=== PATIENT | male | born 1965 | race Two or more races ===

== ENCOUNTER 2022-11-23 20:16 | Inpatient (IN) | payer OTHER ==
[~2022-11-23] VITALS: Ht 165.1 cm; Wt 53.1 kg
--- NOTE | 2022-11-23 20:30 | NUR ---
RT NOTE LATE ENTRY Pt rec'd trached via bag mask by FD. [facility] noted settings given from FD. Pt sx'd for thick small amt of pale yellow secretions. Trach is patent and secured. Alarms are set and audible. ambu bag and emergency spare trach at bedside. Vent plugged into red outlet. Addendum: 11/23/22 at 2212 by AMERICA MONSIVAIS RT Amended: Links added.
[2022-11-23 20:57] LABS: BASOPHILS # (AUTO) 0.1 K/uL (0.0-0.2); BASOPHILS % (AUTO) 0.4 % (0.0-2.0); EOSINOPHILS % (AUTO) 0.4 % (0.0-6.0); HEMATOCRIT 30 % (39-51); HEMOGLOBIN 9.9 g/dL (13.5-17.5); LYMPHOCYTES # (AUTO) 2.1 K/uL (0.8-4.8); LYMPHOCYTES % (AUTO) 11.2 % (20.0-44.0); MEAN CORPUSCULAR HGB CONC 33 g/dl (31.0-36.0); MEAN CORPUSCULAR VOLUME 94 fL (80-96); MONOCYTES # (AUTO) 1.3 K/uL (0.1-1.30); MONOCYTES % (AUTO) 6.7 % (2.0-12.0); NEUTROPHILS # (AUTO) 15.6 K/uL (1.8-8.9); NEUTROPHILS % (AUTO) 81.3 % (43.0-81.0); PLATELET COUNT (AUTO) 635 K/uL (150-450); RED BLOOD CELL COUNT(AUTO) 3.23 MIL/uL (4.5-6.0); WHITE BLOOD COUNT (AUTO) 19.2 K/uL (4.3-11.0)
[2022-11-23] MEDS ORDERED: VANCOMYCIN 1 GM VIAL ONE (20:58)
[2022-11-23] MEDS ORDERED: VANCOMYCIN 1 GM in IV D5W 250 ML IV ONE (21:00)
[2022-11-23] MEDS ORDERED: CEFEPIME 1 GM in IV D5W 50 ML IV ONE (21:00)
[2022-11-23 21:03] LABS: CALCIUM, SERUM 9.2 mg/dL (8.5-10.1); CARBON DIOXIDE 23 mmol/L (21-32); CHLORIDE 101 mmol/L (98-107); CREATININE 0.6 mg/dL (0.6-1.3); GLUCOSE 165 mg/dL (74-106); POTASSIUM 4.3 mmol/L (3.5-5.1); SODIUM SERUM 135 mmol/L (136-145); UREA NITROGEN, BLOOD 14 mg/dL (7-18)
[2022-11-23] MEDS ORDERED: CEFEPIME 1 GM VIAL ONE ×2 (21:03→21:07)
[2022-11-23 21:05] LABS: BILIRUBIN,URINE NEGATIVE (NEGATIVE); COLOR,URINE YELLOW (YELLOW); LEUKOCYTE ESTERASE ,URINE NEGATIVE (NEGATIVE); NITRITE, URINE NEGATIVE (NEGATIVE); PH,URINE 5.5 (5.0-8.0); PROTEIN,URINE 1+ mg/dl (NEGATIVE); UGLUCOSE 3+ mg/dL (NEGATIVE)
[2022-11-23 21:09] LABS: ALANINE AMINOTRANSFERASE 21 U/L (12-78); ALBUMIN 1.7 g/dL (3.4-5.0); ALKALINE PHOSPHATASE 408 U/L (46-116); ASPARTATE AMINOTRANSFERASE 42 U/L (15-37); BILIRUBIN,DIRECT 0.4 mg/dL (0.0-0.2); BILIRUBIN,TOTAL 0.7 mg/dL (0.2-1.0); TOTAL PROTEIN, SERUM 8.2 g/dL (6.4-8.2)
[2022-11-23 21:12] LABS: BACTERIA,URINE Moderate /HPF (None Seen); SQUAMOUS EPITHELIAL CELL,UR Moderate /HPF (None Seen)
[2022-11-23 21:13] LABS: FINE GRANULAR CASTS,URINE Few /LPF (None Seen); WBC,URINE 0-2 /HPF (0-3)
--- NOTE | 2022-11-23 21:26 | NUR ---
PT IN BED 5, BREATHING IS EVEN AND UNLABORED, VENT TRACH, RR 22, O2 SAT 93% ON 60%FiO2. CARDIOVASCULAR WNL. FEVER OF 100.5. G TUBE IN PLACE, CLAMPED AND DRESSED. NUERO: PT TRACKS WITH EYE BUT IS NON RESPONSIVE TO VERBAL STIMULI. STEVENS CATHERTER IN PLACE DRAININ YELLOW URINE. BED IS LOCKED IN LOWEST POSITION, FOLWERS POSITION SIDE RAILS UP.
[2022-11-23] MEDS ORDERED: IV NS 0.9% 2,000 ML IV ONE (21:30)
--- NOTE | 2022-11-23 21:38 | NUR ---
BLOOD, CULTURES, URINE, COVID TAKEN AND SENT TO LAB
--- NOTE | 2022-11-23 21:41 | NUR ---
GAVE VERBAL CLINICALS TO [facility] AUTH
--- NOTE | 2022-11-23 22:26 | NUR ---
HAND OFF REPORT GIVEN TO JARROD VEGA
[2022-11-23] MEDS ORDERED: Z GUARD REMEDY 4 OZ OINT TP PRN (23:00)
[2022-11-23] MEDS ORDERED: MAGNESIUM HYDROXIDE 30 ML UDC PO PRN (23:00)
[2022-11-23] MEDS ORDERED: ONDANSETRON HCL/PF 4 MG/2 ML VIAL IVP PRN (23:00)
[2022-11-23] MEDS ORDERED: ZOLPIDEM TARTRATE 5 MG TABLET PO PRN (23:00)
[2022-11-23] MEDS ORDERED: MAG HYDROX/AL HYDROX/SIMETH 30 ML UDC PO PRN (23:00)
[2022-11-23] MEDS ORDERED: DEXTROSE 50%-WATER 50 ML DISP.SYRIN IV PRN (23:30)
[2022-11-23] MEDS: IPRATROPIUM NEB FS 0.5 MG/2.5 ML AMPUL.NEB NEB SCH (23:42)
[2022-11-24] VITALS (7 sets, daily range): BP systolic 89–100; BP diastolic 57–75
--- NOTE | 2022-11-24 00:55 | NUR ---
PT TO 108 VIA FUNMILAYO WITH RN AND RT.
--- NOTE | 2022-11-24 01:15 | NUR ---
TRANSFERRED TO 108 UNDER ACLS
[2022-11-24] MEDS: IV NS 0.9% 1,000 ML IV PRN ×2 (01:34→18:49)
[2022-11-24] MEDS: BLOOD SUGAR DIAGNOSTIC 1 EACH STRIP IN SCH ×5 (01:34→23:58)
--- NOTE | 2022-11-24 01:52 | NUR ---
RN NOTE INFORMED SKY FLOOR CLERK THAT ACCU CHECK Q6HR. BLOOD SUGAR 132. PER ISS 2 UNITS COVERAGE. NO GTUBE FEEDING ORDERED AT THIS TIME. NO INFORMATION FROM SNF ABOUT WHICH FEEDING PATIENT RECIEVES. RECIEVED ORDER OK TO HOLD COVERAGE.
[2022-11-24] MEDS: INSULIN REGULAR, HUMAN 100 UNIT/ML 3 ML VIAL SQ PRN ×4 (01:54→17:59)
[2022-11-24] MEDS: ALBUTEROL FS 2.5 MG/3 ML VIAL.NEB NEB SCH ×4 (05:18→19:36)
[2022-11-24] MEDS: IPRATROPIUM NEB FS 0.5 MG/2.5 ML AMPUL.NEB NEB SCH ×6 (05:18→23:13)
[2022-11-24 06:21] LABS: BASOPHILS # (AUTO) 0.1 K/uL (0.0-0.2); BASOPHILS % (AUTO) 0.4 % (0.0-2.0); EOSINOPHILS % (AUTO) 0.5 % (0.0-6.0); HEMATOCRIT 25 % (39-51); HEMOGLOBIN 8.4 g/dL (13.5-17.5); LYMPHOCYTES # (AUTO) 4.7 K/uL (0.8-4.8); LYMPHOCYTES % (AUTO) 20.2 % (20.0-44.0); MEAN CORPUSCULAR HGB CONC 33 g/dl (31.0-36.0); MEAN CORPUSCULAR VOLUME 95 fL (80-96); MONOCYTES # (AUTO) 1.4 K/uL (0.1-1.30); MONOCYTES % (AUTO) 5.9 % (2.0-12.0); NEUTROPHILS # (AUTO) 16.9 K/uL (1.8-8.9); PLATELET COUNT (AUTO) 563 K/uL (150-450); RED BLOOD CELL COUNT(AUTO) 2.69 MIL/uL (4.5-6.0); WHITE BLOOD COUNT (AUTO) 23.2 K/uL (4.3-11.0)
--- NOTE | 2022-11-24 06:53 | NUR ---
RN CLOSING NOTE ALERT, NONVERBAL, TRACKS WITH EYES. ON MECH VENT. SINUS RHYTHM ON THE MONITOR. PENDING WOUND CONSULT FOR SACRAL DTI. GT PRESENT, CLAMPED. IVF RUNNING. PLAN FOR ID AND PULM CONSULT, DIETARY CONS.
[2022-11-24 07:29] LABS: CALCIUM, SERUM 8.5 mg/dL (8.5-10.1); CREATININE 0.5 mg/dL (0.6-1.3); MAGNESIUM 2.1 mg/dL (1.8-2.4); PHOSPHORUS 3.6 mg/dL (2.5-4.9); POTASSIUM 3.8 mmol/L (3.5-5.1)
--- NOTE | 2022-11-24 07:56 | NUR ---
WOUND CARE CONSULT: PT PRESENTS WITH UNSTAGEABLE SACRAL PRESSURE ULCER WITH SURROUNDING DEEP TISSUE INJURY, PRESENT ON ADMISSION. RECOMMENDATIONS MADE FOR SKIN PROTECTION AND DISCUSSED WITH NURSING STAFF. FIRST STEP LOW AIRLOSS MATTRESS IS ON ORDER. DR WADSWORTH CALLED FOR SURGICAL CONSULT. Kyle Barron IN AGREEMENT WITH PLAN OF CARE. Addendum: 11/24/22 at 0757 by SISSY RAMOS WNDNU Amended: Links added.
--- NOTE | 2022-11-24 08:04 | NUR ---
RASHARD RN NOTE PATIENT IN BED , WITH TRACH TO VENT SETTING ORDERED, NONVERBAL, ABLE TO TRACH BOTH EYES ,KEEP HOB ELEVATED AT ALL TIME, ON TELE MONITOR SR HR 77 , WITH STEVENS CATH TO GRAVITY WITH YELLOW COLOR URINE, SEEN BY WOUND CARE NURSE FOR SACRAL WOUND , WITH G TUBE CLAMPED AT THIS TIME, RT AC AND LT HL HL INTACT AND FLUSHED WELL ON IVF ORDERED, BEDBED IN LOWEST AND LOCKED POSITION, WILL CONT TO MONITOR CALL LIGHT WITHIN REACH,SAFETY MEASURE IMPLEMENTED
[2022-11-24] MEDS: PANTOPRAZOLE 40 MG VIAL IV SCH (08:37)
[2022-11-24] MEDS: HEPARIN SODIUM, PORCINE 5000 UNITS/1 ML VIAL SQ SCH ×2 (08:38→20:06)
[2022-11-24] MEDS: CEFEPIME 2 GM in IV D5W 100 ML IV SCH ×2 (09:03→20:06)
[2022-11-24] MEDS: PROSOURCE / PROSTAT (PYXIS) 30 ML UDC GT SCH ×2 (09:12→16:01)
[2022-11-24] MEDS: VANCOMYCIN 1 GM in IV D5W 250ml IV SCH ×2 (10:04→16:01)
[2022-11-24] MEDS ORDERED: ZINC50TA65 GT (10:50)
[2022-11-24] MEDS ORDERED: ACET-868 GT (10:50)
[2022-11-24] MEDS ORDERED: CEFT2FRO2 IV (10:50)
[2022-11-24] MEDS ORDERED: ACET-2605 GT (10:50)
[2022-11-24] MEDS ORDERED: CEFE2VIA3 IV (10:50)
[2022-11-24] MEDS ORDERED: MIDO10TA GT (10:50)
[2022-11-24] MEDS ORDERED: CHLO473M3 MM (10:50)
[2022-11-24] MEDS ORDERED: SENN-261 GT (10:50)
[2022-11-24] MEDS ORDERED: CRAN425C6 GT (10:50)
[2022-11-24] MEDS ORDERED: ASPI-1169 GT (10:50)
[2022-11-24] MEDS ORDERED: ASCO-352 GT (10:50)
[2022-11-24] MEDS ORDERED: IPRA3AMP23 IH (10:50)
[2022-11-24] MEDS ORDERED: INSU100V39 SQ (10:50)
[2022-11-24] MEDS ORDERED: MULT-447 GT (10:50)
[2022-11-24] MEDS ORDERED: POLY17PO4 GT (10:50)
[2022-11-24] MEDS ORDERED: CRAN3875 GT (10:50)
[2022-11-24] MEDS ORDERED: VANC1.2526 IV (10:50)
[2022-11-24] MEDS ORDERED: MAGN400O6 GT (10:50)
[2022-11-24] MEDS ORDERED: ONDA4TAB5 GT (10:50)
[2022-11-24] MEDS ORDERED: NALO0.4V2 IV (10:50)
[2022-11-24] MEDS ORDERED: AMIN30LI2 GT (10:50)
[2022-11-24] MEDS ORDERED: DOCU50LI GT (10:50)
[2022-11-24] MEDS ORDERED: NUT.237L30 GT (10:50)
[2022-11-24] MEDS ORDERED: ACID1TAB12 GT (10:50)
--- NOTE | 2022-11-24 11:43 | NUR ---
DOOR TO DOOR SALESMAN NOTE 2DECHO F DOING NOW
[2022-11-24] MEDS ORDERED: GLUCERNA 1.2 1,000 ML BOTTLE NG PRN (12:00)
--- NOTE | 2022-11-24 12:21 | NUR ---
SHANNAN VEGA NOTE MARQUITA DONE NEGATIVE PER TECH FOR DVR ALSO STARTED G TUBE FEEDING ORDERED Addendum: 11/24/22 at 1222 by FERNANDO WILKERSON RN NEGATIVE FOR DVT
[2022-11-24 12:51] LABS: ABG OXYGEN SATURATION 96.3 % (92.0-98.5); ABG PCO2 28.9 mmHg (35.0-45.0); ABG PH 7.438 (7.350-7.450); ABG PO2 88.6 mmHg (75.0-100.0); AaDO2 163.4 mmHg; COHb 0.1 % (0.5-1.5); MetHb 0.3 % (0.0-1.5); O2Hb 95.9 % (94.0-97.0); PEEP,BG 5 cm H2O; SITE, ABG Right Brachial; VENT MODE, BG AC 20 500 40% +5; VT, ABG 500 mL
--- NOTE | 2022-11-24 15:43 | NUR ---
SMALL BATTERY PLATE ASSEMBLER NOTE RT AT BEDSIDE .BREATHING TX DONE TRACH AND N MOUTH CARE DONE ,WILL CONT TO MONITOR
--- NOTE | 2022-11-24 18:41 | NUR ---
WINDOW TINTER NOTE PATINT IN BED ALERT AWAKE, WITH TRACING BOTH EYES, NONVERBAL WITH TRACH TO VENT SETTING ORDERED, ON TELE MONITORS 102.AT THIS TIME, WITH STEVENS CATH TO GRAVITY WITH YELLOW ATA COLOR, RT FA AND LT FA HL INTACT AND FLUSHED WELL , WITH G TUBE FEEDING ORDERED KEEP HOB ELEVATED AT ALL TIME, BED IN LOWEST AND LOCKED POSITION
--- NOTE | 2022-11-24 19:00 | NUR ---
FINANCIAL ACCOUNTING ANALYST open note Recieved pt resting in bed, awake, easily arausable, 02 via vent to trach noted, trach at midline, NAD noted at this time, cano patent and draining clear yellow urine, LFA and RFA IV dressing intact, flushing well, GT patent, placement noted, 0 residual noted, feeding infusing via GT tolerating well, safety precautions in place, HOB up, will continue to monitor
--- NOTE | 2022-11-24 20:00 | NUR ---
AUTOMOBILE DESIGNER note enteral feeding rate increased to 40cc/ hr, pt tolerating well, 0 residual noted
--- NOTE | 2022-11-24 21:00 | NUR ---
PROGRAM SCHEDULER NOTE spoke to daughter for consent of sacral debredment per daughter its ok to procede
[2022-11-24] MEDS: DAKINS QUARTER STRENGTH (0.125%) 480 ML BOTTLE TOP SCH (23:28)
[2022-11-25] VITALS: BP 96/59
[2022-11-25] MEDS: INSULIN REGULAR, HUMAN 100 UNIT/ML 3 ML VIAL SQ PRN ×5 (00:01→23:59)
--- NOTE | 2022-11-25 00:04 | NUR ---
EDGE GLUER note increased enteral feeding to 50cc/ hr
[2022-11-25] MEDS: VANCOMYCIN 1 GM in IV D5W 250ml IV SCH ×2 (01:00→08:37)
[2022-11-25] MEDS: ALBUTEROL FS 2.5 MG/3 ML VIAL.NEB NEB SCH ×4 (01:35→19:19)
[2022-11-25] MEDS: IPRATROPIUM NEB FS 0.5 MG/2.5 ML AMPUL.NEB NEB SCH ×5 (03:31→19:19)
[2022-11-25 04:00] VITALS: BP 91/65
[2022-11-25] MEDS: BLOOD SUGAR DIAGNOSTIC 1 EACH STRIP IN SCH ×3 (05:16→18:23)
--- NOTE | 2022-11-25 06:32 | NUR ---
PERSONAL SERVICE WORKERS exit note Pt resting in bed, hob elevated, afebrile, vent settings noted, trach intact at midline, enteral feeding infusing via GT, tolerating well, LFA and RFA iv patent, cano cath patent, draining clear yellow urine, pt is up for sacral wound debredment today, consent signed, in chart, NAD noted this shift.
--- NOTE | 2022-11-25 07:15 | NUR ---
RASHARD RN OPENING NOTES: Pt resting in bed, hob elevated, afebrile, vent settings as prescribed, trach intact , on GTf glucerna 1.2 running at 50 ml/hr at this time well tolerated, LFA and RFA iv patent iv ns running at 75 ml/hr, cano cath patent, draining clear yellow urine, pt is up for sacral wound debridement today, consent signed, in chart,bed in low and locked position, side rails up, will monitor.
[2022-11-25] MEDS ORDERED: SILVER NITRATE APPLICATOR 1 EA BOX TP SCH (07:30)
[2022-11-25] MEDS ORDERED: LIDOCAINE 1% INJ 50 ML MDV IJ ONE (07:30)
[2022-11-25 08:00] VITALS: BP 104/64
[2022-11-25] MEDS: CEFEPIME 2 GM in IV D5W 100 ML IV SCH ×2 (08:07→20:04)
[2022-11-25 08:14] LABS: BASOPHILS # (AUTO) 0.1 K/uL (0.0-0.2); BASOPHILS % (AUTO) 0.4 % (0.0-2.0); EOSINOPHILS % (AUTO) 0.9 % (0.0-6.0); HEMATOCRIT 24 % (39-51); HEMOGLOBIN 8.2 g/dL (13.5-17.5); LYMPHOCYTES # (AUTO) 2.7 K/uL (0.8-4.8); LYMPHOCYTES % (AUTO) 17.6 % (20.0-44.0); MEAN CORPUSCULAR HGB CONC 34 g/dl (31.0-36.0); MEAN CORPUSCULAR VOLUME 92 fL (80-96); MONOCYTES # (AUTO) 1.5 K/uL (0.1-1.30); MONOCYTES % (AUTO) 9.9 % (2.0-12.0); NEUTROPHILS # (AUTO) 10.8 K/uL (1.8-8.9); NEUTROPHILS % (AUTO) 71.2 % (43.0-81.0); PLATELET COUNT (AUTO) 501 K/uL (150-450); RED BLOOD CELL COUNT(AUTO) 2.59 MIL/uL (4.5-6.0); WHITE BLOOD COUNT (AUTO) 15.2 K/uL (4.3-11.0)
[2022-11-25 08:22] LABS: CALCIUM, SERUM 8.1 mg/dL (8.5-10.1); CREATININE 0.4 mg/dL (0.6-1.3); MAGNESIUM 1.8 mg/dL (1.8-2.4); PHOSPHORUS 2.4 mg/dL (2.5-4.9); POTASSIUM 3.1 mmol/L (3.5-5.1)
[2022-11-25] MEDS: PANTOPRAZOLE 40 MG VIAL IV SCH (08:37)
[2022-11-25] MEDS: PROSOURCE / PROSTAT (PYXIS) 30 ML UDC GT SCH ×2 (08:37→16:02)
[2022-11-25] MEDS: DAKINS QUARTER STRENGTH (0.125%) 480 ML BOTTLE TOP SCH (08:38)
[2022-11-25] MEDS: HEPARIN SODIUM, PORCINE 5000 UNITS/1 ML VIAL SQ SCH ×2 (09:00→20:37)
--- NOTE | 2022-11-25 09:09 | NUR ---
RN NOTES: SPOKE TO TONO BAPTISTE SHE WILL DO DEBRIDEMENT TODAY, MADE AWARE I WILL HOLD HEPARIN, DR IRIS RAI MADE AWARE I AM HOLDING HEPARIN FOR DEBRIDEMENT
[2022-11-25] MEDS ORDERED: POTASSIUM CHLORIDE 20 MEQ POWDER PACKET NG SCH ×2 (10:30→15:30)
--- NOTE | 2022-11-25 11:30 | NUR ---
SILVIA NOTES: SEEN BY TONO BAPTISTE ADMINISTERED LIDOCAINE PRIOR TO DEBRIDEMENT, STARTED DEBRIDEMENT AND USED SILVER DANIA Addendum: 11/25/22 at 1131 by ZENAIDA SANTOS RN USED SILVER NITRATE DURING DEBRIDEMENT WILL MONITOR FOR BLEEDING
[2022-11-25] MEDS: IV NS 0.9% 1,000 ML IV PRN (11:35)
[2022-11-25 12:00] VITALS: BP 99/72
[2022-11-25] MEDS ORDERED: NEUTRA PHOS 1 POWD.PACKET NG ONE (15:30)
[2022-11-25 16:00] VITALS: BP 110/78
[2022-11-25] MEDS: VANCOMYCIN 0.75 GM in IV D5W 250 ML IV SCH (17:09)
--- NOTE | 2022-11-25 18:43 | NUR ---
EMERGENCY DEPARTMENT NURSE CLOSING NOTES: PT IN BED WITH TRACH SHILEY #7 TO MECHANICAL VENT SETTING PRESCRIBED TOLERATED WELL, NO SOB NOTED, NOT IN ANY DISTRESS,ON SINUS RHYTHM ON TELE MONITOR,, ON GT RUNNING GLUCERNA 1.2 AT 6UAL 10 ML, NO N/V/D/S NOTED.NORMAL SALINE RUNNING AT 75 ML/HR VIA, LEFT FOREARM SALINE LOCK, RFA SALINE LOCK PATENT AND FLUSHING WELL, STEVENS CATHETER DRAINING YELLOW CLEAR URINE .WOUND DEBRIDEMENT DONE EARLY, DRESSING INTACT, NO BLEEDING NOTED,BED IN LOW AND LOCKED POSITION, CALL LIGHT WITHIN REACH, SIDE RAILS UP, WILL ENDORSE TO ACID BLOWER RN FOR DEMARIO
[2022-11-25 20:00] VITALS: BP 100/66
--- NOTE | 2022-11-25 22:54 | NUR ---
FLEXO OPERATOR CLOSING NOTES: RECEIVED PTS IN BED WITH EYE OPEN , S/P DEBRIDEMENT SACRAL DRESSING INTACT NO BLEEDING NOTED., WITH TRACH SHILEY #7 TO MECHANICAL VENT SETTING ORDERED. TOLERATED WELL, NO SOB NOT IN ANY DISTRESS,ON SINUS RHYTHM ON TELE MONITOR,, ON GT RUNNING GLUCERNA 1.2 AT 6OCC/HR , NO N/V/D/S NOTED.NORMAL SALINE RUNNING AT 75 ML/HR VIA, LEFT FOREARM SALINE LOCK, RFA SALINE LOCK PATENT AND FLUSHING WELL, STEVENS CATHETER DRAINING YELLOW CLEAR URINE .WOUND ,BED IN LOW AND LOCKED POSITION, CALL LIGHT WITHIN REACH, SIDE RAILS UP, WILL CONTINUE TO MONITOR PTS.V/S STABLE AFEBRILE. Addendum: 11/25/22 at 2312 by GERARD PENG RN This opening notes at 2000hrs not closing notes .
[2022-11-25] MEDS: ACETAMINOPHEN 325 MG TABLET PO PRN (23:38)
[2022-11-26] VITALS: BP 99/57
[2022-11-26] MEDS: IPRATROPIUM NEB FS 0.5 MG/2.5 ML AMPUL.NEB NEB SCH ×7 (00:01→23:07)
[2022-11-26] MEDS: VANCOMYCIN 0.75 GM in IV D5W 250 ML IV SCH ×3 (00:06→16:01)
[2022-11-26] MEDS: BLOOD SUGAR DIAGNOSTIC 1 EACH STRIP IN SCH ×4 (00:06→17:52)
[2022-11-26] MEDS: IV NS 0.9% 1,000 ML IV PRN ×2 (00:09→23:32)
--- NOTE | 2022-11-26 00:14 | NUR ---
telesales supervisor notes Blood sugar for 12mn is 163mg/dl 3units of regular insulin given per sliding scale.pts on gt feeding. pts noted temp 100 tylenol given via gt as ordered cooling measures applied due meds given as order,will continue to monitor.
[2022-11-26] MEDS: ALBUTEROL FS 2.5 MG/3 ML VIAL.NEB NEB SCH ×4 (00:45→20:09)
[2022-11-26 04:00] VITALS: BP 99/69
[2022-11-26] MEDS: INSULIN REGULAR, HUMAN 100 UNIT/ML 3 ML VIAL SQ PRN ×3 (05:23→18:04)
--- NOTE | 2022-11-26 05:30 | NUR ---
SLOPE TENDER NOTES Blood sugar for 12mn is 163mg/dl 3units of regular insulin given per sliding scale.pts on gt feeding. Addendum: 11/26/22 at 0531 by GERARD PENG RN BLOOD SUGAR AT 6AM IS 173 MG/DL NOT 163
--- NOTE | 2022-11-26 06:25 | NUR ---
PLANT PHYSIOLOGIST CLOSING NOTES: PTS REMAIN IN BED ,ON MECHANICAL VENT SETTING ORDERED. TOLERATED WELL, NO SOB NOT IN ANY DISTRESS,ON SINUS RHYTHM ON TELE MONITOR,SATING 100%, ON GT RUNNING GLUCERNA 1.2 AT 6OCC/HR , NO N/V/D/S NOTED.NORMAL SALINE RUNNING AT 75 ML/HR VIA, LEFT FOREARM SALINE LOCK, RFA SALINE LOCK PATENT AND FLUSHING WELL, STEVENS CATHETER DRAINING YELLOW CLEAR URINE .WOUND ,BED IN LOW AND LOCKED POSITION, CALL LIGHT WITHIN REACH, SIDE RAILS UP, WILL INDORSE TO RN DAY SHIFT CONTINUITY OF CARE
[2022-11-26 06:57] LABS: CALCIUM, SERUM 8.5 mg/dL (8.5-10.1); CREATININE 0.5 mg/dL (0.6-1.3); MAGNESIUM 2.1 mg/dL (1.8-2.4); PHOSPHORUS 3.8 mg/dL (2.5-4.9); POTASSIUM 3.4 mmol/L (3.5-5.1)
--- NOTE | 2022-11-26 07:30 | NUR ---
ROOF TRUSS BUILDER AM NOTES: PT IN BED AWAKE, OPENS EYES, NON VERBAL, WITH TRACH SHILEY # 6 COVIDEN TRACH TO MECHANICAL VENT, SETTING - AC 20 TV 500, FIO2 40%, PEEP 5, O2 SAT 100%; BREATHING EVEN AND UNLABORED. NO SOB, NO DISTRESS TOLERATING WELL. SR WITH HR OF 84 ON MONITOR. NO SIGNS OF PAIN. IV ACCESS RFA G18 AND LFA G18 WITH NS AT 75 ML/HR, BOTH SITES CLEAR. GT ONGOING GLUCERNA 1.2 AT 60 ML, CHECKED FOR PLACEMENT, O RESIDUAL.STEVENS CATHETER DRAINING YELLOW CLEAR URINE. SACRAL WOUND DEBRIDEMENT DONE 11/25/22. DRESSING INTACT, NO BLEEDING NOTED,BED IN LOW AND LOCKED POSITION, CALL LIGHT WITHIN REACH, SIDE RAILS UP, WILL PERFORM PRESCRIBED WOUND TREATMENT IN A FEW. WILL TURN AND REPOSITION Q 2 HOURS. HOB UP 30 DEG AT ALL TIMES. SAFETY MEASURES IN PLACE. BED LOW LOCK. CALL LIGHT WITHIN REACH. WILL CONTINUE TO MONITOR.
[2022-11-26 07:52] LABS: BASOPHILS # (AUTO) 0.1 K/uL (0.0-0.2); BASOPHILS % (AUTO) 0.6 % (0.0-2.0); EOSINOPHILS % (AUTO) 1.5 % (0.0-6.0); HEMATOCRIT 24 % (39-51); LYMPHOCYTES # (AUTO) 2.6 K/uL (0.8-4.8); LYMPHOCYTES % (AUTO) 19.5 % (20.0-44.0); MEAN CORPUSCULAR HGB CONC 33 g/dl (31.0-36.0); MEAN CORPUSCULAR VOLUME 94 fL (80-96); MONOCYTES # (AUTO) 1.2 K/uL (0.1-1.30); NEUTROPHILS # (AUTO) 9.4 K/uL (1.8-8.9); NEUTROPHILS % (AUTO) 69.4 % (43.0-81.0); PLATELET COUNT (AUTO) 507 K/uL (150-450); RED BLOOD CELL COUNT(AUTO) 2.59 MIL/uL (4.5-6.0); WHITE BLOOD COUNT (AUTO) 13.5 K/uL (4.3-11.0)
[2022-11-26 08:00] VITALS: BP 103/67
[2022-11-26] MEDS: CEFEPIME 2 GM in IV D5W 100 ML IV SCH ×2 (09:08→21:04)
[2022-11-26] MEDS: PANTOPRAZOLE 40 MG VIAL IV SCH (09:09)
[2022-11-26] MEDS: PROSOURCE / PROSTAT (PYXIS) 30 ML UDC GT SCH ×2 (09:16→16:02)
[2022-11-26] MEDS: HEPARIN SODIUM, PORCINE 5000 UNITS/1 ML VIAL SQ SCH ×2 (09:16→21:05)
--- NOTE | 2022-11-26 09:30 | NUR ---
RN NOTES DUE MEDS GIVEN
[2022-11-26] MEDS: DAKINS QUARTER STRENGTH (0.125%) 480 ML BOTTLE TOP SCH (10:26)
[2022-11-26] MEDS ORDERED: POTASSIUM CHLORIDE 20 MEQ POWDER PACKET NG ONE (11:00)
[2022-11-26 12:00] VITALS: BP 104/60
[2022-11-26 16:00] VITALS: BP 107/60
[2022-11-26] MEDS: GLUCERNA 1.2 1,000 ML BOTTLE GT PRN (17:39)
--- NOTE | 2022-11-26 18:46 | NUR ---
OPERATIONAL COMMUNICATION CHIEF CLOSING NOTES: PTS ON BED AWAKE,ON MECHANICAL VENT SETTING ORDERED. TOLERATED WELL, NO SOB NOT IN ANY DISTRESS, ON SINUS RHYTHM ON TELE MONITOR 70,SATING 100%, ON GT RUNNING GLUCERNA 1.2 AT 6OCC/HR , NO N/V/D/S NOTED. NORMAL SALINE RUNNING AT 75 ML/HR VIA, LEFT FOREARM, RFA SALINE LOCK PATENT AND FLUSHING WELL, STEVENS CATHETER DRAINING YELLOW CLEAR URINE ABLE TO DRAIN 1900. WOUND TREATMENT DONE ,BED IN LOW AND LOCKED POSITION, CALL LIGHT WITHIN REACH, SIDE RAILS UP, WILL INDORSE TO INCOMING SHIFT CONTINUITY OF CARE
--- NOTE | 2022-11-26 19:37 | NUR ---
SENIOR ELECTRICAL PROJECT MANAGER OPENING NOTES: RECEIVED PATIENT AWAKE IN BED ,BED IN LOW POSITION CALL LIGHTS WITHIN REACH, NO COMPLAIN OF PAIN AND DISCOMFORT AT THIS TIME, ON MECHANICAL VENT SATURATING WELL, HOB AT 45 DEGREE, ON G TUBE FEEDING OF GLUCERNA 1.2@ 60CC INFUSING WELL, IV LINE AT LFA#18 WITH ONGOING 0.9NSS@75ML/HR INFUSING WELL, PATIENT ON TELE MONITOR- SR-88, STEVENS CATHETER-150CC URINE OUTPUT,PATIENT KEPT CLEAN AND DRY ALL NEEDS MET WILL CONTINUE TO MONITOR-
[2022-11-26 20:00] VITALS: BP 117/74
[2022-11-27] VITALS: BP 111/72
[2022-11-27] MEDS: BLOOD SUGAR DIAGNOSTIC 1 EACH STRIP IN SCH ×4 (00:44→17:33)
[2022-11-27] MEDS: INSULIN REGULAR, HUMAN 100 UNIT/ML 3 ML VIAL SQ PRN ×4 (00:44→17:39)
[2022-11-27] MEDS: VANCOMYCIN 0.75 GM in IV D5W 250 ML IV SCH ×3 (01:03→17:17)
[2022-11-27] MEDS: ALBUTEROL FS 2.5 MG/3 ML VIAL.NEB NEB SCH ×4 (02:02→19:50)
[2022-11-27 04:00] VITALS: BP 125/79
[2022-11-27 05:40] LABS: BASOPHILS # (AUTO) 0.1 K/uL (0.0-0.2); BASOPHILS % (AUTO) 0.4 % (0.0-2.0); EOSINOPHILS % (AUTO) 2.3 % (0.0-6.0); HEMATOCRIT 26 % (39-51); HEMOGLOBIN 8.3 g/dL (13.5-17.5); LYMPHOCYTES # (AUTO) 2.9 K/uL (0.8-4.8); LYMPHOCYTES % (AUTO) 22.4 % (20.0-44.0); MEAN CORPUSCULAR HGB CONC 32 g/dl (31.0-36.0); MEAN CORPUSCULAR VOLUME 94 fL (80-96); MONOCYTES # (AUTO) 1.1 K/uL (0.1-1.30); MONOCYTES % (AUTO) 8.3 % (2.0-12.0); NEUTROPHILS # (AUTO) 8.6 K/uL (1.8-8.9); NEUTROPHILS % (AUTO) 66.6 % (43.0-81.0); PLATELET COUNT (AUTO) 498 K/uL (150-450); RED BLOOD CELL COUNT(AUTO) 2.71 MIL/uL (4.5-6.0); WHITE BLOOD COUNT (AUTO) 12.8 K/uL (4.3-11.0)
[2022-11-27 05:57] LABS: CALCIUM, SERUM 8.4 mg/dL (8.5-10.1); CREATININE 0.5 mg/dL (0.6-1.3); POTASSIUM 3.5 mmol/L (3.5-5.1)
[2022-11-27 05:58] LABS: PHOSPHORUS 3.5 mg/dL (2.5-4.9)
--- NOTE | 2022-11-27 06:22 | NUR ---
BAND DIRECTOR CLOSING NOTES: PATIENT SLEEP IN BED COMFORTABLY, BED IN LOW POSITION CALL LIGHTS WITHIN REACH, NO COMPLAIN OF PAIN AND DISCOMFORT AT THIS TIME, ON MECHANICAL VENT SATURATING WELL, PATIENT IS NPO ON G TUBE FEEDING OF GLUCERNA 1.2@60CC/HR INFUSING WELL, PATIENT IS A/O X1 NONE VERBAL , ON TELE MONITOR- SR-91 NO SYMPTOMS WAS OBSERVED, ON STEVENS CATHETER- 1500CC URINE OUTPUT, PATIENT KEPT CLEAN AND DRY ALL NEEDS MET ENDORSE TO INCOMING SHIFT.
[2022-11-27] MEDS: IPRATROPIUM NEB FS 0.5 MG/2.5 ML AMPUL.NEB NEB SCH ×5 (06:26→19:50)
--- NOTE | 2022-11-27 07:15 | NUR ---
RN OPENING NOTE PATIENT IS AWAKE, RESTING IN BED, NO COMPLAIN OF PAIN AND DISCOMFORT AT THIS TIME, ON MECHANICAL VENT SATURATING WELL. G TUBE FEEDING OF GLUCERNA 1.2@60CC/HR INFUSING WELL, FLUSHES WELL, NO RESIDUAL. TELE MONITOR SHOWS SR-90. STEVENS CATHETER IN PLACE, DRAINING WELL. BED IN LOW POSITION CALL LIGHTS WITHIN REACH, WILL CONTINUE TO MONITOR.
[2022-11-27 08:00] VITALS: BP 104/68
[2022-11-27] MEDS: PANTOPRAZOLE 40 MG/PACK PACK GT SCH (08:51)
[2022-11-27] MEDS: HEPARIN SODIUM, PORCINE 5000 UNITS/1 ML VIAL SQ SCH ×2 (08:54→21:31)
[2022-11-27] MEDS: PROSOURCE / PROSTAT (PYXIS) 30 ML UDC GT SCH ×2 (08:56→17:13)
[2022-11-27] MEDS: DAKINS QUARTER STRENGTH (0.125%) 480 ML BOTTLE TOP SCH (08:56)
[2022-11-27] MEDS: CEFEPIME 2 GM in IV D5W 100 ML IV SCH ×2 (08:56→21:29)
[2022-11-27 12:00] VITALS: BP 121/81
[2022-11-27] MEDS: ACETAMINOPHEN 325 MG TABLET PO PRN (13:02)
[2022-11-27 16:00] VITALS: BP 122/49
[2022-11-27] MEDS: GLUCERNA 1.2 1,000 ML BOTTLE GT PRN (17:54)
--- NOTE | 2022-11-27 19:00 | NUR ---
RN CLOSING NOTE PATIENT IS AWAKE, RESTING IN BED, NONVERBAL ON MECHANICAL VENT SATURATING WELL. G TUBE FEEDING OF GLUCERNA 1.2@60 CC/HR INFUSING WELL, FLUSHES WELL, NO RESIDUAL. TELE MONITOR SHOWS SR-90. IV ACCESS RIGHT WRIST, FLUSHES WELL. STEVENS CATHETER IN PLACE, DRAINING WELL. BED IN LOW POSITION CALL LIGHTS WITHIN REACH, WILL ENDORSE TO THE [employer] NURSE FOR DEMARIO.
[2022-11-27] MEDS: IV NS 0.9% 1,000 ML IV PRN (19:31)
[2022-11-27 20:00] VITALS: BP 95/64
--- NOTE | 2022-11-27 20:00 | NUR ---
LAYER OUT NOTE PT IN BED AWAKE. ON VENT/TRACK TOLERATING SETTINGS WELL. RT AT BED SIDE GIVING BREATHING TREATMENT. NO DISTRESS OR DISCOMFORT NOTED. NO S/S OF PAIN NOTED. ON TELE SR HR 87 GT INTACT AND PATENT INFUSING GLUCERNA AT 60 ML/HR, NO RESIDUAL NOTED. KEPT HIS HOB ELEVATED. RT WRIST #22 G IV SITE INTACT AND PATENT INFUISNG NS AT 75 ML/HR, 0 ML RESIDUAL NOTED. F/C INTACT AND PATENT DRAINING YELLOWISH COLOR URINE. ALL NEEDS ATTENDED. FAMILY CAME TO VISIT HIM. REPOSITION HIM Q2H, KEPT HIM DRY AND CLEAN. ALL NEEDS ATTENDED. VSS. CONTINUE TO MONITOR HIM. .
[2022-11-28] VITALS: BP 101/68
[2022-11-28] MEDS: IPRATROPIUM NEB FS 0.5 MG/2.5 ML AMPUL.NEB NEB SCH ×5 (00:11→15:28)
[2022-11-28] MEDS: VANCOMYCIN 0.75 GM in IV D5W 250 ML IV SCH ×2 (00:38→09:40)
[2022-11-28] MEDS: BLOOD SUGAR DIAGNOSTIC 1 EACH STRIP IN SCH ×3 (00:39→11:39)
[2022-11-28] MEDS: INSULIN REGULAR, HUMAN 100 UNIT/ML 3 ML VIAL SQ PRN ×3 (00:41→11:43)
[2022-11-28] MEDS: ALBUTEROL FS 2.5 MG/3 ML VIAL.NEB NEB SCH ×3 (01:04→14:00)
[2022-11-28 04:00] VITALS: BP 107/68
[2022-11-28 06:28] LABS: BASOPHILS # (AUTO) 0.1 K/uL (0.0-0.2); BASOPHILS % (AUTO) 0.5 % (0.0-2.0); EOSINOPHILS % (AUTO) 2.6 % (0.0-6.0); HEMATOCRIT 25 % (39-51); HEMOGLOBIN 8.2 g/dL (13.5-17.5); LYMPHOCYTES # (AUTO) 2.8 K/uL (0.8-4.8); LYMPHOCYTES % (AUTO) 24.4 % (20.0-44.0); MEAN CORPUSCULAR HGB CONC 33 g/dl (31.0-36.0); MEAN CORPUSCULAR VOLUME 94 fL (80-96); MONOCYTES # (AUTO) 1.1 K/uL (0.1-1.30); MONOCYTES % (AUTO) 9.6 % (2.0-12.0); NEUTROPHILS # (AUTO) 7.2 K/uL (1.8-8.9); NEUTROPHILS % (AUTO) 62.9 % (43.0-81.0); PLATELET COUNT (AUTO) 504 K/uL (150-450); RED BLOOD CELL COUNT(AUTO) 2.63 MIL/uL (4.5-6.0); WHITE BLOOD COUNT (AUTO) 11.5 K/uL (4.3-11.0)
--- NOTE | 2022-11-28 06:39 | NUR ---
VP LAB NOTE PT IN BED ASLEEP AROUSABLE. TOLERATING VENT SETTINGS, NO DISTRESS OR DISCOMFORT NOTED. NO S/S OF PAIN NOTED. ON TELE SR HR 85.GTF INFUSING WELL, ALSO NS INFUSING AT 75ML/HR. NO S/S OF INFILTRATIO NOTED. KEPT HER DRY AND CLEAN. ALL NEEDS ATTENDED. SIDE RAILS UP X 3 AND CALL LIGHT WITHIN REACH. WILL ENDORSE TO DAY SHIFT NURSE FOR CONTINUE TO CARE.
[2022-11-28 06:43] LABS: CALCIUM, SERUM 8.5 mg/dL (8.5-10.1); CREATININE 0.5 mg/dL (0.6-1.3); POTASSIUM 3.5 mmol/L (3.5-5.1)
--- NOTE | 2022-11-28 07:10 | NUR ---
RN OPENING NOTE PATIENT IS AWAKE, RESTING IN BED, ON MECHANICAL VENT SATURATING WELL, NON VERBAL D/T TRACH., BUT FOLLOW COMMANDS AND COMMUNICATE WITH SIGNS, NO COMPLAIN OF PAIN AND DISCOMFORT AT THIS TIME,G TUBE FEEDING OF GLUCERNA 1.2@60CC/HR INFUSING WELL, FLUSHES WELL, NO RESIDUAL. TELE MONITOR SHOWS SR-90. STEVENS CATHETER IN PLACE, DRAINING WELL. BED IN LOW POSITION CALL LIGHTS WITHIN REACH, WILL CONTINUE TO MONITOR.
[2022-11-28 08:00] VITALS: BP 103/69
[2022-11-28] MEDS: CEFEPIME 2 GM in IV D5W 100 ML IV SCH (09:00)
[2022-11-28] MEDS: PROSOURCE / PROSTAT (PYXIS) 30 ML UDC GT SCH (09:04)
[2022-11-28] MEDS: PANTOPRAZOLE 40 MG/PACK PACK GT SCH (09:04)
[2022-11-28] MEDS: DAKINS QUARTER STRENGTH (0.125%) 480 ML BOTTLE TOP SCH (09:05)
[2022-11-28] MEDS: HEPARIN SODIUM, PORCINE 5000 UNITS/1 ML VIAL SQ SCH (09:07)
[2022-11-28 12:00] VITALS: BP 113/75
[2022-11-28] MEDS: GLUCERNA 1.2 1,000 ML BOTTLE GT PRN (15:11)
[2022-11-28 16:00] VITALS: BP 109/73
--- NOTE | 2022-11-28 16:45 | NUR ---
PATIENT D/C IN STABLE CONDITION TO THE [facility]. TAKEN BY PARAMEDICS ACCOMPANIED BY RESPIRATORY THERAPIST, D/C INSTRUCTION GIVEN. REPORT TO THE FACILITY PROVIDED OVER THE PHONE TO THE COAL CRUSHER OPERATOR
== END 2022-11-28 17:04 | DRG 710 ==
LOC: ER 20:19 → TELE 22:41 → TELE-TD 23:17 → TELE1 11-25 11:02
PROVIDERS: ADMIT Nurse Practitioner Acute Care
PROC: 5A1955Z Respiratory Ventilation, Greater than 96 Consecutive Hours (ICD-10-PCS; principal; 2022-11-23)
PROC: 0KBN0ZZ Excision of Right Hip Muscle, Open Approach (ICD-10-PCS; 2022-11-25)
PROC: 0KBP0ZZ Excision of Left Hip Muscle, Open Approach (ICD-10-PCS; 2022-11-25)
DX: A41.9 Sepsis, unspecified organism (principal); J96.21 Acute and chronic respiratory failure with hypoxia; J95.851 Ventilator associated pneumonia; G93.41 Metabolic encephalopathy; L89.154 Pressure ulcer of sacral region, stage 4; D68.59 Other primary thrombophilia; R65.20 Severe sepsis without septic shock; Z99.11 Dependence on respirator [ventilator] status; Y92.129 Unspecified place in nursing home as the place of occurrence of the external cause; Y84.8 Other medical procedures as the cause of abnormal reaction of the patient, or of later complication, without mention of misadventure at the time of the procedure; Z20.822 Contact with and (suspected) exposure to COVID-19; Z93.1 Gastrostomy status; Z86.73 Personal history of transient ischemic attack (TIA), and cerebral infarction without residual deficits; R13.10 Dysphagia, unspecified; Y95 Nosocomial condition; H70.90 Unspecified mastoiditis, unspecified ear; Z98.890 Other specified postprocedural states; Z74.01 Bed confinement status; E11.9 Type 2 diabetes mellitus without complications; Z86.19 Personal history of other infectious and parasitic diseases; Z93.0 Tracheostomy status; G40.909 Epilepsy, unspecified, not intractable, without status epilepticus; D64.9 Anemia, unspecified; Z86.69 Personal history of other diseases of the nervous system and sense organs; Z86.718 Personal history of other venous thrombosis and embolism; B96.1 Klebsiella pneumoniae [K. pneumoniae] as the cause of diseases classified elsewhere
CPT/HCPCS: 31720; 36415; 36600; 70450-TC; 71045-TC; 80048-TC; 80061-TC; 80076-TC; 80202-TC; 81001; 82803-TC; 82962-TC; 83540-TC; 83605-TC; 83735-TC; 84100-TC; 84484-TC; 85025-TC; 85730-TC; 87040-TC; 87086-TC; 93307-TC; 93970-TC; 94002-TC; 94003-TC; 94760-TC; 94799-TC; 99082-TC; A4223; A6253; A6403; C9113; C9803; G0378; J0692; J1644; J1815; J3370; J3490; J7030; J7060